=== PATIENT | male | born 1960 | race Two or more races ===

== ENCOUNTER 2023-09-04 19:52 | Emergency (ER) | payer OTHER ==
[2023-09-04 20:54] VITALS: RESP 18; BMI 26.6
[2023-09-04] MEDS ORDERED: ASPIRIN 81 MG CHEWABLE TABLETS ONE (21:57)
[2023-09-04] MEDS ORDERED: MAG HYDROX/AL HYDROX/SIMETH 30 ML UNIT-DOSE CUP ONE (21:57)
[2023-09-04] MEDS ORDERED: ACETAMINOPHEN INJECTION 100 ML IVPB ONE (21:57)
[2023-09-04] MEDS ORDERED: FAMOTIDINE 20 MG/50 ML IVPB 20 MG/50 ML MG IVPB ONE (21:58)
[2023-09-04] MEDS: FAMOTIDINE 20 MG/50 ML IVPB 20 MG/50 ML MG IVPB ONE (22:15)
[2023-09-04] MEDS: MAG HYDROX/AL HYDROX/SIMETH 30 ML UNIT-DOSE CUP PO ONE (22:15)
[2023-09-04] MEDS: ACETAMINOPHEN 1000 MG/100 ML BAG IVPB ONE (22:15)
[2023-09-04] MEDS: ASPIRIN 81 MG CHEWABLE TABLETS PO ONE (22:15)
[2023-09-04 22:24] LABS: BASO % 0.9 % (0-2.0); EOS % 0.4 % (0-4.5); HEMATOCRIT 36.4 % (35.4-49); HEMOGLOBIN 12.4 GM/dL (11.7-16.9); LYMPH % 10.2 % (8-40); MCH 28.1 pg (25.7-33.7); MCHC 34.2 g/dl (32.0-35.9); MEAN CELL VOLUME 82.1 fl (80-96); MEAN PLT VOLUME 8.4 fl (7.5-11.1); MONO % 3.1 % (3.8-10.2); NEUT % 85.4 % (42.8-82.8); PLATELET COUNT 177 10^3/uL (134-434); RBC 4.43 M/mm3 (4.00-5.60); RDW 14.3 % (11.9-15.9); WHITE BLOOD COUNT 9.1 K/mm3 (4.0-10.0)
[2023-09-04 22:45] LABS: POTASSIUM 4.2 mmol/L (3.5-5.1)
[2023-09-04 22:47] LABS: ALBUMIN 3.5 g/dl (3.4-5.0); CALCIUM 8.2 mg/dL (8.5-10.1)
[2023-09-04 22:50] LABS: CREATININE 0.8 mg/dL (0.55-1.3)
[2023-09-04 22:52] LABS: BILIRUBIN,TOTAL 0.3 mg/dL (0.2-1); TOT PROT 6.9 g/dl (6.4-8.2)
[2023-09-05 00:49] VITALS: BP 128/71; PULSE 65; TEMP 98
== END 2023-09-05 05:47 | disposition home or self-care (01) ==
LOC: JER 19:52
PROC: 3E033GC Introduction of Other Therapeutic Substance into Peripheral Vein, Percutaneous Approach (ICD-10-PCS; principal; 2023-09-04)
PROC: 3E033NZ Introduction of Analgesics, Hypnotics, Sedatives into Peripheral Vein, Percutaneous Approach (ICD-10-PCS; 2023-09-04)
DX: R07.9 Chest pain, unspecified (principal); Z20.822 Contact with and (suspected) exposure to COVID-19
CPT/HCPCS: 0241U-QW; 36415; 71045-TC-FY; 80053; 83690; 84484; 85025; 93005; 93010; 96365; 96375; 99285-25; J0131